=== PATIENT | female | born 1980 | race Caucasian/White ===

== ENCOUNTER 2021-11-17 17:06 | Emergency (ER) | payer OTHER ==
[~2021-11-17 17:06] MED LIST: IBUPROFEN600 MG PO; OMNICEF 300 MG300 MG PO; PERCOCET 5-3251 EACH PO; ZOFRAN ODT 4 MG4 MG PO
[2021-11-18] MEDS ORDERED: HYDROCODON-ACE1 EAC4 PO (16:48)
== END 2021-11-17 17:13 | disposition left against medical advice (07) ==
LOC: ER1 17:06
DX: Z53.21 Procedure and treatment not carried out due to patient leaving prior to being seen by health care provider (principal)

== ENCOUNTER 2021-11-18 15:02 | Emergency (ER) | payer OTHER ==
[2021-11-18] MEDS ORDERED: HYDROCODON-ACE1 EAC4 PO (16:48)
== END 2021-11-18 17:06 | disposition home or self-care (01) ==
LOC: ER1 15:02
DX: S80.02XA Contusion of left knee, initial encounter (principal); S30.0XXA Contusion of lower back and pelvis, initial encounter; W19.XXXA Unspecified fall, initial encounter; Y92.009 Unspecified place in unspecified non-institutional (private) residence as the place of occurrence of the external cause
CPT/HCPCS: 72220; 73564; 99283